=== PATIENT | female | born 1995 | race Caucasian/White ===

== ENCOUNTER 2017-06-06 14:39 | Emergency (ER) | payer OTHER ==
[~2017-06-06] VITALS: Ht 152.4 cm; Wt 48.1 kg
== END 2017-06-06 17:53 | disposition home or self-care (01) ==
LOC: ER 14:39
DX: B34.9 Viral infection, unspecified (principal)

== ENCOUNTER 2019-04-03 21:40 | Emergency (ER) | payer OTHER ==
[~2019-04-03] VITALS: Ht 152.4 cm; Wt 52.6 kg
[2019-04-03] MEDS ORDERED: TUSNEL LIQUID178 ML PO (23:43)
[2019-04-03] MEDS ORDERED: CLARITIN10 MG PO (23:43)
== END 2019-04-04 00:32 | disposition home or self-care (01) ==
LOC: ER 21:40
DX: B34.9 Viral infection, unspecified (principal)

== ENCOUNTER → 2020-06-20 15:00 | Outpatient (CLI) | payer OTHER ==
[~2020-06-20 15:00] MED LIST: CLARITIN10 MG PO; TUSNEL LIQUID178 ML PO
== END | disposition home or self-care (01) ==
LOC: PPH VACUNA 15:00
DX: Z23 Encounter for immunization (principal)

== ENCOUNTER 2020-07-11 00:16 | Outpatient (CLI) | payer OTHER | END 2020-07-11 00:17 | disposition home or self-care (01) | LOC: PPH VACUNA 00:16 | DX: Z23 Encounter for immunization (principal) ==

== ENCOUNTER 2020-09-19 14:18 | Outpatient (CLI) | payer OTHER | END 2020-09-19 14:21 | disposition home or self-care (01) | LOC: SONOGRAMA 14:18 | PROVIDERS: ATTEND Neuromusculoskeletal Medicine, Sports Medicine | DX: R92.2 Inconclusive mammogram (principal) ==

== ENCOUNTER 2022-02-07 15:04 | Emergency (ER) | payer OTHER ==
[~2022-02-07] VITALS: Ht 152.4 cm; Wt 49.0 kg
== END 2022-02-07 19:42 | disposition home or self-care (01) ==
LOC: ER 15:04
DX: B34.9 Viral infection, unspecified (principal)